=== PATIENT | male | born 1990 | race Two or more races ===

== ENCOUNTER 2024-08-10 09:00 | Day surgery (SDC) | payer MEDICAID, SELFPAY ==
[2024-08-08 07:21] VITALS: BMI 32.9
--- NOTE | 2024-08-08 07:35 | EKG_ITS ---
[facility] Test Date: 2024-08-08 Pat Name: CHELSEA UNGER Department: Room: - Gender: Male Home Health Physical Therapist: LEIDA : 1990 Requested By: Yoni Remy Order Number: [id number] Reading MD: Yoni Remy Measurements Intervals Premium Rate: 84 P: 38 UT: 150 QRS: -14 QRSD: 93 T: 13 QT: 318 QTc: 377 Interpretive Statements SINUS RHYTHM MODERATE VOLTAGE CRITERIA FOR LVH, CONSIDER NORMAL VARIANT [MEETS CRITERIA IN ONE OF: R(aVL), S(V1), R(V5), R(V5/V6)+S(V1)] No previous ECG available for comparison /store/S0/[id number]/ecg/[id number].pdf
[2024-08-08 08:37] LABS: Basophils # (Auto) 0.1 Thou/mm3 (0.0-0.2); Basophils % (Auto) 1 % (0-2.5); Eosinophils # (Auto) 0.4 Thou/mm3 (0.0-0.5); Eosinophils % (Auto) 5 % (0-10); Hematocrit 44.6 % (41.0-53.0); Hemoglobin 15.5 g/dL (13.5-16.0); Immature Granulocytes % (Auto) 0 % (0-0); Immature Granulocytes Auto 0.03 Thou/mm3 (0.00-0.00); Lymphocytes # (Auto) 2.7 Thou/mm3 (1.0-4.8); Lymphocytes % (Auto) 33 % (10-50); Mean Corpuscular HGB Conc 34.8 g/dl (31.0-37.0); Mean Corpuscular Hemoglobin 30.2 pg (25.0-35.0); Mean Corpuscular Volume 87 fL (80-100); Monocytes # (Auto) 0.7 Thou/mm3 (0.0-0.8); Monocytes % (Auto) 8 % (0-12); Neutrophils # (Auto) 4.2 Thou/mm3 (1.8-7.7); Neutrophils % (Auto) 52 % (37-80); Nucleated Red Blood Cell % 0 /100 WBC (0); Platelet Count 255 Thou/mm3 (140-440); RDW Standard Deviation 38.5 fL (35.1-43.9); Red Blood Count 5.13 Miln/mm3 (4.50-5.90)
[2024-08-08 08:52] LABS: Alanine Aminotransferase 23 U/L (10-49); Albumin, Serum 4.5 gm/dL (3.5-5.0); Alkaline Phosphatase 38 U/L (46-116); Anion Gap 9 (7-16); Aspartate Amino Transferase 21 U/L (0-34); BUN/Creatinine Ratio 17 Ratio (12-20); Blood Urea Nitrogen 12 mg/dL (9-23); Calcium 8.9 mg/dL (8.3-10.6); Calcium (Corrected) 8.9 mg/dL (8.5-10.1); Carbon Dioxide 24.8 mMol/L (20.0-31.0); Chloride 107 mMol/L (98-107); Creatinine (Component) 0.7 mg/dL (0.6-1.3); Estimated Creatinine Clearance 154.6 mL/min (>60); Globulin 2.2 gm/dL (2.3-3.5); Glucose 136 mg/dL (74-106); Osmolality,Calculated 282 (275-295); Potassium 4.2 mMol/L (3.4-5.1); Sodium 141 mMol/L (136-145); Total Protein 6.7 gm/dL (5.7-8.2); eGFR > 60 See Note
--- NOTE | 2024-08-09 11:27 | ESHP_ITS ---
RE: CHELSEA UNGER : 1990 DATE OF ADMISSION: 08/10/2024 HISTORY OF PRESENT ILLNESS: The patient is a 34-year-old gentleman who was referred to me for vasectomy. The patient desired bilateral vasectomy for family planning. He has 5 children. PAST SURGICAL HISTORY: None. PAST MEDICAL HISTORY: He has history of diabetes mellitus and elevated cholesterol. HOME MEDICATIONS: He is on, 1. Lisinopril. 2. Janumet. 3. Statin medication. ALLERGIES: HE IS NOT ALLERGIC TO ANY MEDICATIONS. PHYSICAL EXAMINATION: HEENT: Normal. NECK: Supple. LUNGS: Clear. CARDIOVASCULAR: Heart sounds are normal. ABDOMEN: Soft without any organomegaly. No guarding. No rigidity. EXTREMITIES: Normal. GENITOURINARY: Phallus is normal. There is a moderate phimosis. Testes are down in scrotum. IMPRESSION: The patient is desiring bilateral vasectomy for family planning. PLAN: Bilateral vasectomy. Planned procedure risks and complications have been discussed with the patient. The patient has understood them and agreed to proceed. cc: [facility] DT: 10:47:09 TT: 11:25:00 Ref: [id number] - TID: [id number]
[2024-08-10] VITALS (28 sets, daily range): BP systolic 107–159; BP diastolic 68–93; PULSE 84–124; RESP 13–26; TEMP 36.2–36.8; O2SAT 92–100; BMI 32.3; BMI 32.8
--- NOTE | 2024-08-10 07:45 | SUR.PREOP ---
Patient expressed gratitude for prayer before their procedure.
[2024-08-10] MEDS: RINGERS LACTATED 1000 ML 1,000 ML 20 ML IV (09:46)
[2024-08-10] MEDS: EPINEPHrine RT SOL 0.5 ML NEBU (12:01)
--- NOTE | 2024-08-10 12:01 | SUR.PHASEI ---
Pt arrived to PACU via gurney, respirations even and unlabored, SPO2 100% on 10 liters, Racemic Epi started upon arrival per Prosper Cleary CRNA, dressing to scrotum clean, dry, and intact with scrotal support in place, pt has swelling to bilateral lower face, pt states his throat doesn't feel swollen, report from Segundo RN, Anuradha CHOI, and Prosper Cleary CRNA.
--- NOTE | 2024-08-10 12:05 | SUR.PHASEI ---
Report to Veronica CHOI
--- NOTE | 2024-08-10 12:05 | SUR.PHASEI ---
1205: noted swelling to bilateral chin. SARAH Cheng aware.
--- NOTE | 2024-08-10 12:05 | SUR.PHASEI ---
Addendum entered by Veronica Vu RN 08/10/24 13:31: scrotal support in place. Original Note: 1205: received report from STEPH Thakkar. pt alert and oriented to name, place and time. denies any pain or discomfort. dressing to scrotum clean, dry and intact.
--- NOTE | 2024-08-10 12:15 | SUR.PHASEI ---
1215: ice chios given, tolerated well.
--- NOTE | 2024-08-10 12:15 | SUR.PHASEI ---
1215: pt noted spitting out medium amount of blood. SARAH Cheng made aware, no new order received.
--- NOTE | 2024-08-10 12:30 | SUR.PHASEI ---
1230: observed patient coughing and spitting out red blood. able to swallow ice chips when given. no swelling from the tongue. noted swelling to bilateral lower chin. SARAH Cheng made aware, recommended to give ice chips.
--- NOTE | 2024-08-10 12:55 | SUR.PHASEI ---
Addendum entered by Veronica Vu RN 08/10/24 13:33: scrotal support in place. Original Note: 1255: report given to STEPH Thakkar. pt alert and oriented to name, place and time. denies any pain or discomfort. dressing to scrotum clean,dry and intact.
--- NOTE | 2024-08-10 13:48 | SUR.PHASEII ---
Called Pharmacy, spoke to Nick Pharmacist, reported pt facial swelling and events in OR
--- NOTE | 2024-08-10 13:51 | SUR.PHASEII ---
Dr Garvey updated on pt status, okay to discharge per Dr Garvey
--- NOTE | 2024-08-10 14:10 | SUR.PHASEII ---
pt drops to 85% on room air, Prosper Cleary made aware, breathing treatment ordered. will follow
[2024-08-10] MEDS: ALBUTEROL RT 2.5 MG/3 ML NEBU INH (14:25)
--- NOTE | 2024-08-10 14:30 | ESOP_ITS ---
RE: CHELSEA UNGER : 1990 DATE OF OPERATION: 08/10/2024 PREOPERATIVE DIAGNOSIS: The patient desiring bilateral vasectomy for family planning. POSTOPERATIVE DIAGNOSIS: The patient desiring bilateral vasectomy for family planning. PROCEDURE PERFORMED: Bilateral vasectomy. ANESTHESIA: General by Mrs. Cheng. INDICATION: The patient is a 34-year-old gentleman with desiring bilateral vasectomy for family planning. Bilateral vasectomy was planned. Planned procedure, risks, and complications have been discussed with the patient. The patient understood them and agreed to proceed. DESCRIPTION OF PROCEDURE: After the patient was brought to the operating table under adequate general anesthesia in supine position, parts were prepped and draped in the usual fashion. The right vas deferens was done first. A small transverse incision was made after making the right vas deferens subcutaneous. A small incision was made. The vas deferens was dissected from surrounding structures. Two clamps were placed on the vas deferens and the segment in between the clamps was excised. The ends of the vas deferens were fulgurated and ligated using 3-0 chromic gut suture. Complete hemostasis was obtained. The wound was closed with interrupted sutures of 3-0 chromic gut. In a similar fashion, left-sided vasectomy was done. Local anesthetic was injected at the site of the skin. Sterile dressing was then applied. The patient was then transferred to the recovery room in a satisfactory condition having tolerated the entire procedure well. Sponge count and needle count at the end of the procedure was found to be correct. Estimated blood loss was approximately 2 mL. DT: 11:52:47 TT: 14:28:00 Ref: [id number] - TID: [id number]
--- NOTE | 2024-08-10 15:15 | SUR.PHASEII ---
pt o2 drops to 87% on room air. Will continue using incentive spirometer.
--- NOTE | 2024-08-10 15:57 | XR_ITS ---
Examination: AP chest single view Technique one AP portable upright chest single view Exam date and time: August 10, 2024 1703 hrs. Comparison October 06, 2019 Indications: Normal heart size No pneumonia or pulmonary edema. Intact osseous structures Impression: No active disease
--- NOTE | 2024-08-10 16:32 | SUR.PHASEII ---
Received report on pt. s/p surgery. Pt. is resting with eyes closed, responds to verbal commands, VSS, pt. receiving 2 liters 02 via NC, lung sounds clear, equal expansion remy., swelling to sides of neck noted. No c/o pain, nausea or SOB at this time.
--- NOTE | 2024-08-10 16:50 | SUR.PHASEII ---
Spoke with Dr. Garvey, ordered consult with hospitalist, will endorse.
--- NOTE | 2024-08-10 17:42 | SUR.PHASEII ---
Assisted pt. with ambulation to restroom, pt. tolerated well with successful urination, no SOB or chest pain, 02 saturation upon returning to bed was 88%, pt. placed back on 02 at 2 liters NC, 02 saturation now 95-97%.
--- NOTE | 2024-08-10 19:08 | PRELIM_ITS ---
Radiograph of the chest (single view). August 10, 2024 1658 hours Clinical history: intubation reaction unable to maintain o2 saturation on RA Comparison: No prior study is available for comparison. Findings: The heart, mediastinum and pulmonary boris are unremarkable. The lungs are clear. There is no pleural effusion. The bony thorax is unremarkable. No evidence of lines and tubes. Impression: No acute cardiopulmonary process. Report Electronically Signed By: Edurad Sherman 08/10/2024 7:08:10 PM [EST]
--- NOTE | 2024-08-10 19:14 | SUR.PHASEII ---
Pt. is on room air, 02 saturation between 92-98%. Pt. is using IS and tolerating.
--- NOTE | 2024-08-10 19:31 | SUR.PHASEII ---
Called and gave report on pt. s/p surgery to Sowmya CHOI on M/S unit. Pt. is AAOx3, VSS, no c/o pain or nausea at this time, dressing to scrotum CDI. Made RN aware of pt.'s 02 saturation status and plan for stay.
--- NOTE | 2024-08-10 19:45 | SUR.PHASEII ---
Pt. transferred to room 376 via gurney with all of belongings. VSS, no c/o pain or nausea, IV flushed and patent, dressing to scrotum CDI, pt. able to urinate. Pt.'s at bedside with all of pt.'s belongings. Sowmya CHOI assumed care of pt.
[2024-08-11] VITALS: BP 138/82; PULSE 97; RESP 18; TEMP 36.3; O2SAT 97
[2024-08-11 04:00] VITALS: BP 140/81; PULSE 99; RESP 18; TEMP 36.3; O2SAT 97
[2024-08-11 07:43] VITALS: BP 131/81; PULSE 84; RESP 18; TEMP 36.3; O2SAT 96
[2024-08-11] MEDS: ATORVASTATIN CALCIUM 20 MG TABLET PO (09:54)
[2024-08-11 10:47] LABS: Basophils % (Auto) 0 % (0-2.5); Eosinophils # (Auto) 0.1 Thou/mm3 (0.0-0.5); Eosinophils % (Auto) 1 % (0-10); Hematocrit 42.4 % (41.0-53.0); Hemoglobin 14.3 g/dL (13.5-16.0); Immature Granulocytes % (Auto) 0 % (0-0); Immature Granulocytes Auto 0.04 Thou/mm3 (0.00-0.00); Lymphocytes # (Auto) 2.3 Thou/mm3 (1.0-4.8); Lymphocytes % (Auto) 21 % (10-50); Mean Corpuscular HGB Conc 33.7 g/dl (31.0-37.0); Mean Corpuscular Hemoglobin 30.8 pg (25.0-35.0); Mean Corpuscular Volume 91 fL (80-100); Monocytes # (Auto) 0.9 Thou/mm3 (0.0-0.8); Monocytes % (Auto) 9 % (0-12); Neutrophils # (Auto) 7.6 Thou/mm3 (1.8-7.7); Neutrophils % (Auto) 69 % (37-80); Nucleated Red Blood Cell % 0 /100 WBC (0); Platelet Count 238 Thou/mm3 (140-440); RDW Standard Deviation 40.2 fL (35.1-43.9); Red Blood Count 4.65 Miln/mm3 (4.50-5.90)
[2024-08-11 11:09] LABS: Alanine Aminotransferase 18 U/L (10-49); Albumin, Serum 4.1 gm/dL (3.5-5.0); Albumin/Globulin Ratio 1.9 (1.2-2.2); Alkaline Phosphatase 40 U/L (46-116); Anion Gap 8 (7-16); Aspartate Amino Transferase 16 U/L (0-34); BUN/Creatinine Ratio 18 Ratio (12-20); Bilirubin,Total 0.7 mg/dL (0.3-1.2); Blood Urea Nitrogen 14 mg/dL (9-23); Calcium 8.8 mg/dL (8.3-10.6); Calcium (Corrected) 8.8 mg/dL (8.5-10.1); Chloride 106 mMol/L (98-107); Creatinine (Component) 0.8 mg/dL (0.6-1.3); Estimated Creatinine Clearance 135.1 mL/min (>60); Globulin 2.2 gm/dL (2.3-3.5); Glucose 219 mg/dL (74-106); Osmolality,Calculated 286 (275-295); Potassium 3.8 mMol/L (3.4-5.1); Sodium 140 mMol/L (136-145); Total Protein 6.3 gm/dL (5.7-8.2); eGFR > 60 See Note
[2024-08-11 12:00] VITALS: BP 136/96; PULSE 82; RESP 16; TEMP 36.2; O2SAT 97
--- NOTE | 2024-08-11 12:48 | PD.RESCONSUL ---
HPI Data of Consult Requesting Physician: Adolfo Garvey MD Attending Provider: Adolfo Garvey MD Primary Care Provider: SHILPI Ochoa Consult Narrative History of present illness: Mr. Garrido is a 34 year old male with past medical significant for type 2 diabetes and hyperlipidemia. Pt underwent bilaterally vasectomy on 08/10 with urologist. Primary team consulted hospitalist team due to pt developing hypoxia post surgery. However hospitalist was not notified until this morning. Pt is saturating above 95% on room air, denies SOB. As per primary team, the urologist, pt is cleared to be discharged home to self care. As per hospitalist team, pt is saturating on room air, and hemodynamicaly stable to be discahrge home to self care and follow up with urologist outpatient within 1 week. Vitals: Stable at 136/96, pulse 82, patient is saturating above 95% on room air Labs are within normal limits PMH: Type 2 diabetes, hyperlipidemia PSH: Status post bilateral vasectomy Home Meds: Atorvastatin, Janumet and lisinopril cc:: cc: Adolfo Garvey MD Review of Systems Review of Systems Systems Reviewed: All systems reviewed, normal except as documented Exam Vital Signs Temp Pulse Resp BP Pulse Ox O2 Del Method O2 Flow Rate 97.2 F 82 16 136/96 H 97 Room Air 2 08/11/24 12:00 08/11/24 12:00 08/11/24 12:00 08/11/24 12:00 08/11/24 12:00 08/11/24 12:00 08/10/24 18:30 Narrative Exam GENERAL: A&Ox3 . Awake, Not in acute distress NEURO: no focal neurological deficits HEENT: Atraumatic, Normocephalic. mucous membranes moist. Eyes open, symmetrical, & clear HEART: Normal Heart Sounds LUNGS: Clear to auscultation with no wheezing or crackles. ABDOMEN: soft, non-distended, non-tender, bowel sounds heard, no guarding or rebound tenderness SKIN: No Rash or ecchymoses EXTREMITIES: No edema, tenderness, able to move all 4 extremities, pedal pulses palpated Results Labs 08/11/24 10:22 08/11/24 10:22 Labs: Short CBC 08/11/24 Range/Units 10:22 WBC 11.0 H (3.8-10.6) Thou/mm3 Hgb 14.3 (13.5-16.0) g/dL Hct 42.4 (41.0-53.0) % Plt Count 238 (140-440) Thou/mm3 [facility] 08/11/24 10:22 Sodium 140 Potassium 3.8 Chloride 106 Carbon Dioxide 26.0 BUN 14 Creatinine 0.8 Glucose 219 H Calcium 8.8 Liver Function 08/11/24 Range/Units 10:22 Total Bilirubin 0.7 (0.3-1.2) mg/dL AST 16 (0-34) U/L ALT 18 (10-49) U/L Alkaline Phosphatase 40 L (46-116) U/L Albumin 4.1 (3.5-5.0) gm/dL Quality Measures Quality Measures none Medications Home Medications and Allergies Home Medications ?Medication ?Instructions ?Recorded ?Confirmed ?Type atorvastatin 20 mg tablet 20 mg PO QDAY 08/08/24 08/10/24 History sitagliptin phos 100 mg-metformin 1 tab PO BID 08/08/24 08/10/24 History ER 1,000 mg tablet,extend rel 24h mp (Janumet XR) Allergies Allergy/AdvReac Type Severity Reaction Status Date / Time No Known Allergies Allergy Verified 08/10/24 13:18 Visit Medications Atorvastatin Calcium (Atorvastatin Calcium 20 Mg Tablet) 20 mg PO QDAY [facility] Stop: 09/10/24 08:59 Last Admin: 08/11/24 09:54 Dose: 20 mg Home Medication- Please Speak With Patient Caregiver To Have Rx Brought To [facility] 1 tab PO BID MAUREEN Stop: 09/09/24 20:59 Last Admin: 08/11/24 09:54 Dose: Not Given Discontinued Medications Albuterol (Albuterol Rt 2.5 Mg/3 Ml Nebu) 2.5 mg INH X1 ONE Stop: 08/10/24 14:19 Last Admin: 08/10/24 14:25 Dose: 2.5 mg Epinephrine (Epinephrine Rt Cyn 0.5 Ml Nebu) 0.5 ml INH X1 ONE Stop: 08/10/24 12:01 Fentanyl Citrate (Fentanyl Cit Inj 50 Mcg/Ml Amp 2ml) 25 mcg IV Q5M PRN PRN Reason: PAIN SCALE 1-3 (mild Stop: 08/10/24 14:14 Hydromorphone HCl (Hydromorphone Inj 2 Mg/Ml Vial) 0.4 mg IV Q5M PRN PRN Reason: PAIN SCALE 7-10 (Severe Stop: 08/10/24 14:14 Lactated Ringer's (Lactated Ringers) 1,000 mls @ 20 mls/hr IV .Q24H ONE Stop: 08/11/24 05:59 Last Admin: 08/10/24 09:46 Dose: 20 mls/hr Assessment & Plan Plan Mr. Garrido is a 34 year old male with past medical significant for type 2 diabetes and hyperlipidemia. Pt underwent bilaterally vasectomy on 08/10 with urologist. Primary team consulted hospitalist team due to pt developing hypoxia post surgery. Pt is saturating above 95% on room air, denies SOB. #AHRF- resolved #S/p vasectomy, bilateral -management as per urologist -follow up urologist outpatient within 1 week #Type 2 Diabetes Mellitus #Hyperlipidemia -Continue home medications as prescribed by primary care It was a pleasure caring for this patient, Thank you for the consult. Assessment and plan discussed with my attending physician Dr. Aisha Roldan (PGY-1)- Internal medicine resident Attending Provider Attestation/Addendum I attest that I was physically present for the evaluation, physical examination, lab and imaging review of the patient with the residents. I discussed the case with the residents and agree with the findings and plans of care as documented above. Patient is a 34 years old male with past medical history of type 2 diabetes mellitus, hyperlipidemia who was admitted under urology for bilateral vasectomy. Patient underwent the procedure with urology on 08/10/2024. Following the surgery, patient developed hypoxia for which internal medicine team was consulted. The consult was put under different name hence did not appear on the list, hospitalist team was not notified by the phone as well. Only came to know about consult request when received a call by utilization review. At bedside, patient is states she is feeling well and denies any complaints. He does not have shortness of breath, chest pain or cough. Saturating well on room air, able to ambulate without issues. Rest of the vital signs are within normal limits as well. Repeat labs were ordered, showed mild elevation in WBC at 11, likely reactive from surgery. Had a blood glucose of 219 on chemistry panel, likely due to missed antihyperglycemic's. Chest x-ray was obtained yesterday evening, does not show any active disease. The hypoxia most likely from postanesthesia yesterday. Thank you for the opportunity to take part in the care of this patient. Magali Leonard MD
--- NOTE | 2024-08-11 15:38 | PD.HHDS ---
Planned Discharge Date 08/11/24 DS: Providers Provider Primary care physician: SHILPI Ochoa Attending Provider on Admission: Adolfo Garvey MD Consults: 08/10/24 17:05 Consult to Adult Hospitalist Routine Comment: pt. s/p surgery in PACU bay 4 Consulting Provider: Magali Leonard RES Attending Provider on DC: Magali Leonard MD Discharging Provider: Magali Leonard MD Diagnosis Problem List Completed Was Problem List Reviewed/Reconciled?: Yes Hospital Course - Hospitalist Hospital Course Hospital course: Patient is a 34 years old male with past medical history of type 2 diabetes mellitus, hyperlipidemia who was admitted under urology for bilateral vasectomy for family-planning. Patient underwent the bilateral vasectomy e with urology on 08/10/2024. Patient had a brief duration of hypoxia following surgery yesterday, chest x-ray was obtained, internal medicine consult was done. Chest x-ray is unremarkable, patient currently on room air. Denies any shortness of breath, cough, chest pain, palpitations. Denies any fever or chills. His pain is well-controlled. Vital signs are within normal limits. Lab results are within normal limits as well except for glucose of 219 likely due to missed home medication for diabetes. Discussed with urology, stated that patient is stable for discharge, requested to put the DC orders and DC summary in. We will discharge patient home on oral ciprofloxacin and analgesics. He is to continue his home medication for diabetes and hyperlipidemia. #Status post bilateral vasectomy #Type 2 diabetes mellitus #Hyperlipidemia Time Spent with Patient Time attestation: Total time spent providing and/or coordinating discharge services: Time spent: Less than 30 minutes Quality: VTE Deep Vein Thrombosis/Pulmonary Embolism Present on Admission: No Discharge Results Labs Diagrams: 08/11/24 10:22 08/11/24 10:22 Labs: Short CBC 08/11/24 Range/Units 10:22 WBC 11.0 H (3.8-10.6) Thou/mm3 Hgb 14.3 (13.5-16.0) g/dL Hct 42.4 (41.0-53.0) % Plt Count 238 (140-440) Thou/mm3 BMP 08/11/24 10:22 Sodium 140 Potassium 3.8 Chloride 106 Carbon Dioxide 26.0 BUN 14 Creatinine 0.8 Glucose 219 H Calcium 8.8 Liver Function 08/11/24 Range/Units 10:22 Total Bilirubin 0.7 (0.3-1.2) mg/dL AST 16 (0-34) U/L ALT 18 (10-49) U/L Alkaline Phosphatase 40 L (46-116) U/L Albumin 4.1 (3.5-5.0) gm/dL Exam Vital Signs Temp Pulse Resp BP Pulse Ox O2 Del Method O2 Flow Rate 97.2 F 82 16 136/96 H 97 Room Air 2 08/11/24 12:00 08/11/24 12:00 08/11/24 12:00 08/11/24 12:00 08/11/24 12:00 08/11/24 12:00 08/10/24 18:30 Narrative GENERAL: A&Ox3 . Awake, Not in acute distress HEENT: Atraumatic, Normocephalic. mucous membranes moist. Eyes open, symmetrical, & clear HEART: Normal Heart Sounds LUNGS: Clear to auscultation with no wheezing or crackles. ABDOMEN: soft, non-distended, non-tender, bowel sounds heard, no guarding or rebound tenderness SKIN: No Rash or ecchymoses EXTREMITIES: No edema, tenderness, able to move all 4 extremities, pedal pulses palpable NEURO: no focal neurological deficits PSYCH: Appropriate mood and affect Discharge Plan Plan Patient Disposition: HOME (Self Care) Patient condition on transfer: Stable Prescriptions/Referrals Prescriptions/Med Rec: New hydrocodone-acetaminophen 5-325 mg tablet 1 tab PO Q6H MDD 4 PRN (Reason: pain) Qty: 20 0RF ciprofloxacin HCl [Cipro] 500 mg tablet 500 mg PO BID Qty: 14 0RF Continued Janumet XR 100-1,000 mg tablet, ER multiphase 24 hr 1 tab PO BID atorvastatin 20 mg tablet 20 mg PO QDAY Referrals: Adolfo Garvey MD [Physician] - Bry Barriga FNP [Primary Care Provider] - Patient/Caregiver Discharge Instructions Discharge Activity: activity as tolerated Education Materials: Semen Analysis, Anesthesia: General Anesthesia, Surgery Anesthesia After, Breathing Deep Postsurgical, Understanding Vasectomy, Using an Incentive Spirometer, Preventing Surgical Site Infections, Dwividi Vasectomy Tamazight, Dwividi Vasectomy [place]ic, [facility] General Discharge-[place]ic, [facility] General SDC Instructions- [place] Print Language: Green[place]ic Activity Restrictions/Additional Instructions: Follow up with Dr Garvey in in one week Apply Neosporin ointment daily for one week May shower in 72 hours Stand Alone Forms: [facility] Award Info., Patient Portal Info Letter Discharge Order Discharge Orders: Discharge (Routine); Ordered 08/11/24 Ordered By: Magali Leonard Quality Discharge Quality Measures none
== END 2024-08-11 14:10 | disposition home or self-care (01) ==
LOC: S2EX 20:01 → S3SX 20:02
PROVIDERS: Anesthesiology; Student in an Organized Health Care Education/Training Program; Absent Provider Surgery; PCP Nurse Practitioner; Referring Provider Surgery; Visit Provider Surgery
PROC: (CPT 55250; principal; 2024-08-10 11:00)
DX: Z30.2 Encounter for sterilization (principal); E11.9 Type 2 diabetes mellitus without complications; E78.00 Pure hypercholesterolemia, unspecified
CPT/HCPCS: 55250; 36415; 71045; 80048; 80053; 85025; 93005; A4217; A4649; J0131; J0690; J1100; J1200; J2250; J2310; J2704; J3010; J3490; J7120; L8330; A9270; J1596